=== PATIENT | male | born 1935 | race Caucasian/White ===

== ENCOUNTER 2017-02-26 16:30 | Inpatient (IN) | payer OTHER, BC ==
[2017-02-26] MEDS ORDERED: LEVAQUIN PREMIX IV 750 MG 750 MG/150 ML BAG IV SCH (17:00)
--- NOTE | 2017-02-26 17:53 | RAD ---
Chest, two views Indication: Pneumonia, cough. Comparison: None Findings: The heart size is normal. The lungs are hyperinflated with mild interstitial changes, sugg estive for COPD. No focal infiltrates, pleural effusion, or pneumothorax identified. The bony thorax is unremarkable. Impression: No acute cardiopulmonary disease. Findings suggesting COPD. Reported By:
[2017-02-26 18:15] LABS: BASOPHILS # (AUTO) 0.1 X10^3/uL (0.0-0.1); BASOPHILS % (AUTO) 0.5 % (0.2-1.0); EOSINOPHILS % (AUTO) 0.2 % (0.9-2.9); HEMATOCRIT 38.2 % (42.0-54.0); HEMOGLOBIN 12.7 g/dL (13.5-18.0); LYMPHOCYTES # (AUTO) 1.2 X10^3/uL (1.3-2.9); LYMPHOCYTES % (AUTO) 7.8 % (21.0-51.0); MEAN CORPUSCULAR HEMOGLOBIN 29.5 pg (27.0-34.0); MEAN CORPUSCULAR HGB CONC 33.1 g/dL (33.0-35.0); MEAN CORPUSCULAR VOLUME 88.9 fL (80.0-100.0); MONOCYTES # (AUTO) 1.1 x10^3/uL (0.3-0.8); MONOCYTES % (AUTO) 7.2 % (0.0-13.0); NEUTROPHILS # (AUTO) 13.2 x10^3/uL (2.2-4.8); NEUTROPHILS % (AUTO) 84.3 % (42.0-75.0); PLATELET COUNT 193 X10^3/uL (150.0-450.0); RED CELL DISTRIBUTION WIDTH 13.4 % (11.6-16.5); WHITE BLOOD COUNT 15.7 X10^3/uL (3.6-10.0)
[2017-02-26 18:21] LABS: ALANINE AMINOTRANSFERASE 21 Units/L (12-78); ALBUMIN 3.4 g/dL (3.4-5.0); ALKALINE PHOSPHATASE 84 Units/L (46-116); ASPARTATE AMINO TRANSFERASE 20 Units/L (15-37); BLOOD UREA NITROGEN 24 mg/dL (7-18); CALCIUM 8.4 mg/dL (8.5-10.1); CARBON DIOXIDE 27.8 mmol/L (21-32); CHLORIDE 101 mmol/L (98-107); COR NA(FOR HYPERGLY) 138 mmol/L (136-145); CREATININE 1.92 mg/dL (0.70-1.30); GLUCOSE 157 mg/dL (65-99); SODIUM 137 mmol/L (136-145); TOTAL PROTEIN 7.1 g/dL (6.4-8.2); eGFR BLACK RACES 43 (>60); eGFR NON BLACK RACES 36 (>60)
[2017-02-26] MEDS ORDERED: NS 1/2 1000 ML IV 1,000 ML IV ONE (18:30)
[2017-02-26 18:33] VITALS: BMI 22.4
[2017-02-26] MEDS: ROBITUSSIN DM PO SCH ×2 (18:36→22:28)
[2017-02-26] MEDS: NS 1/2 1000 ML IV 1,000 ML IV SCH (18:37)
[2017-02-26] MEDS: TYLENOL 325 MG TAB PO PRN (19:46)
[2017-02-26] MEDS: DUONEB 0.5 MG/3 MG NEB SCH (20:30)
[2017-02-26] MEDS: HUMULIN R SC PRN (22:46)
[2017-02-27] MEDS: DUONEB 0.5 MG/3 MG NEB SCH ×6 (00:23→21:22)
[2017-02-27 05:31] LABS: BASOPHILS % (AUTO) 0.4 % (0.2-1.0); EOSINOPHILS # (AUTO) 0.1 x10^3/uL (0.0-0.2); HEMATOCRIT 33.2 % (42.0-54.0); HEMOGLOBIN 11.4 g/dL (13.5-18.0); LYMPHOCYTES # (AUTO) 1.3 X10^3/uL (1.3-2.9); LYMPHOCYTES % (AUTO) 12.9 % (21.0-51.0); MEAN CORPUSCULAR HEMOGLOBIN 30.4 pg (27.0-34.0); MEAN CORPUSCULAR HGB CONC 34.2 g/dL (33.0-35.0); MEAN CORPUSCULAR VOLUME 88.9 fL (80.0-100.0); MEAN PLATELET VOLUME 9.2 fL (7.4-11.0); MONOCYTES # (AUTO) 0.8 x10^3/uL (0.3-0.8); MONOCYTES % (AUTO) 7.8 % (0.0-13.0); NEUTROPHILS % (AUTO) 77.9 % (42.0-75.0); PLATELET COUNT 157 X10^3/uL (150.0-450.0); RED BLOOD COUNT 3.73 X10^6/uL (4.7-6.0); RED CELL DISTRIBUTION WIDTH 13.5 % (11.6-16.5); WHITE BLOOD COUNT 10.3 X10^3/uL (3.6-10.0)
[2017-02-27 05:46] LABS: ALBUMIN 2.6 g/dL (3.4-5.0); CALCIUM 7.9 mg/dL (8.5-10.1); CARBON DIOXIDE 28.2 mmol/L (21-32); CREATININE 1.6 mg/dL (0.70-1.30); TOTAL PROTEIN 5.8 g/dL (6.4-8.2)
[2017-02-27] MEDS ORDERED: NS 1/2 1000 ML IV 1,000 ML IV ONE ×2 (08:50→22:37)
[2017-02-27] MEDS: NS 1/2 1000 ML IV 1,000 ML IV SCH ×2 (08:56→22:31)
[2017-02-27] MEDS: LEVAQUIN PREMIX IV 750 MG 750 MG/150 ML BAG IV SCH (08:57)
[2017-02-27] MEDS: ROBITUSSIN DM PO SCH ×4 (08:57→20:34)
--- NOTE | 2017-02-27 12:03 | DR.UPDATE ---
H&P Update History and Physical Update: HISTORY AND PHYSICAL UPDATE FOR ADMISSION 02/26/17 MR. HANKINS'S H&P WAS COMPLETED IN OUR OFFICE PRIOR TO ADMISSION. HE HAS BEEN SEEN AND EXAMINED WITH NO CHANGES NOTED.
--- NOTE | 2017-02-27 12:12 | PCM.PROG ---
Progress Note - Progress Note for Day of Date: 02/27/17 - Subjective Subjective: PATIENT CONTINUES WITH COUGH AND CHEST CONGESTION THIS MORNING. LUNGS ARE NOTED WITH SCATTERED WHEEZES AND RHONCHI ON AUSCULTATION. PATIENT IS NOTED WITH A COARSE, NON-PRODUCTIVE COUGH. HE STATES HE WAS DIAGNOSED WITH ACUTE BRONCHITIS APPROXIMATELY THREE WEEKS AGO, WAS TREATED WITH ORAL ANTIBIOTICS, AND HASN'T RECOVERED. HE REPORTS SYMPTOMS WORSENED OVER THAT PERIOD OF TIME. PATIENT IS AFEBRILE. CBC WNL EXCEPT: WBC IMPROVED FROM 15.7 TO 10.3, H/H 11.4/33.2. CMP WNL EXCEPT: BUN/CREAT 22/1.60, GFR 44, GLUCOSE 112 , CALCIUM 7.9, TOT PROTEIN 5.8, ALBUMIN 2.6. WE WILL CONTINUE WITH CURRENT TREATMENT AND FOLLOW UP WITH LABS AND CHEST XRAY IN AM. - Past Medical Family Social History Past Med/Fam/Surg Hx: No changes since H&P Allergies: Allergies Penicillins Allergy (Verified 02/26/17 18:01) - Review of Systems ROS: No change since H&P - Vital Signs and I&O's Vital Signs: Temperature 97.6 F Pulse Rate [Right Brachial] 64 Pulse Rate 88 Respiratory Rate 18 Blood Pressure [Right Arm] 119/64 O2 Sat by Pulse Oximetry 98 Intake and Output: Intake & Output 02/25/17 02/26/17 02/27/17 02/28/17 11:59 11:59 11:59 11:59 Intake Total 620 Output Total 775 Balance -155 - Physical Exam Oriented: Normal, Time, Person, Place Eyes: Normal. negative: Blurred Vision, Diplopia, Discharge, Pain, Redness, Photophobia Ear: Normal. negative: Swelling, Ecchymosis, Hemotypanum, Abrasion, Laceration Nose: Normal. negative: Injected, Discharge, Blood Throat: Red, Dry. negative: Tonsillar Hypertrophy, Exudate Respiratory: Generalized, Wheezes, Rhonchi Cardiovascular: Normal. negative: Murmur, Edema : Normal. negative: Dysuria, Hematuria, Frequency, Discharge, Testicular Pain Auscultation: Bowel Sounds: Normal. negative: Bruit Palpation: Normal. negative: Spleen Enlarged, Liver Enlarged, Mass Pulsatile Tenderness: Normal. negative: Rebound, Guarding, Rigidity Skin: Decreased Turgur. negative: Diaphoresis, Wound, Bruising, Ecchymosis Musculoskeletal: Instability Psychiatric: Normal Mood Description: Calm, Appropriate Affect: Normal Speech Pattern: Clear, Appropriate - Laboratory and Diagnostics Result Diagrams: 02/27/17 04:25 02/27/17 04:25 Labs: 02/26/17 18:15 Sputum - Expectorated Sputum Sputum Culture - Preliminary 02/26/17 18:15 Sputum - Expectorated Sputum - Final Laboratory WBC 10.3 X10^3/uL (3.6-10.0) H 02/27/17 04:25 RBC 3.73 X10^6/uL (4.7-6.0) L 02/27/17 04:25 Hgb 11.4 g/dL (13.5-18.0) L 02/27/17 04:25 Hct 33.2 % (42.0-54.0) L 02/27/17 04:25 MCV 88.9 fL (80.0-100.0) 02/27/17 04:25 MCH 30.4 pg (27.0-34.0) 02/27/17 04:25 MCHC 34.2 g/dL (33.0-35.0) 02/27/17 04:25 RDW 13.5 % (11.6-16.5) 02/27/17 04:25 Plt Count 157 X10^3/uL (150.0-450.0) 02/27/17 04:25 MPV 9.2 fL (7.4-11.0) 02/27/17 04:25 Neut % 77.9 % (42.0-75.0) H 02/27/17 04:25 Lymph % 12.9 % (21.0-51.0) L 02/27/17 04:25 [place] % 7.8 % (0.0-13.0) 02/27/17 04:25 Eos % 1.0 % (0.9-2.9) 02/27/17 04:25 Baso % 0.4 % (0.2-1.0) 02/27/17 04:25 Neut # 8.0 x10^3/uL (2.2-4.8) H 02/27/17 04:25 Lymph # 1.3 X10^3/uL (1.3-2.9) 02/27/17 04:25 Gibson # 0.8 x10^3/uL (0.3-0.8) 02/27/17 04:25 Eos # 0.1 x10^3/uL (0.0-0.2) 02/27/17 04:25 Baso # 0.0 X10^3/uL (0.0-0.1) 02/27/17 04:25 Absolute Nucleated RBC 0.0 /100WBC 02/27/17 04:25 Sodium 142 mmol/L (136-145) 02/27/17 04:25 Corrected Sodium 142 mmol/L (136-145) 02/27/17 04:25 Potassium 3.7 mmol/L (3.5-5.1) 02/27/17 04:25 Chloride 107 mmol/L (98-107) 02/27/17 04:25 Carbon Dioxide 28.2 mmol/L (21-32) 02/27/17 04:25 BUN 22 mg/dL (7-18) H 02/27/17 04:25 Creatinine 1.60 mg/dL (0.70-1.30) H 02/27/17 04:25 Est GFR (MDRD) Af Amer 53 (>60) L 02/27/17 04:25 Est GFR (MDRD) Non-Af 44 (>60) L 02/27/17 04:25 Glucose 112 mg/dL (65-99) H 02/27/17 04:25 Calcium 7.9 mg/dL (8.5-10.1) L 02/27/17 04:25 Corrected Calcium 9.0 mg/dL (8.5-10.1) 02/27/17 04:25 Total Bilirubin 0.40 mg/dL (0.2-1.0) 02/27/17 04:25 AST 16 Units/L (15-37) 02/27/17 04:25 ALT 19 Units/L (12-78) 02/27/17 04:25 Alkaline Phosphatase 60 Units/L (46-116) 02/27/17 04:25 Total Protein 5.8 g/dL (6.4-8.2) L 02/27/17 04:25 Albumin 2.6 g/dL (3.4-5.0) L 02/27/17 04:25 Globulin 3.2 g/dL (2.5-4.5) 02/27/17 04:25 Albumin/Globulin Ratio 0.8 Ratio (1.1-2.1) L 02/27/17 04:25 - Plan (1) Bronchopneumonia Status: Acute Plan: CONTINUE PNEUMONIA PROTOCOL: IV LEVAQUIN, DUONEBS, ROBITUSSIN, SUPPLEMENTAL OXYGEN, MONITOR LABS AND CHEST XRAY. (2) Asthma Status: Chronic Qualifiers: Asthma severity: mild persistent Asthma complication type: uncomplicated Qualified Code(s): J45.30 - Mild persistent asthma, uncomplicated (3) COPD (chronic obstructive pulmonary disease) Status: Chronic Qualifiers: COPD type: chronic bronchitis Chronic bronchitis type: simple Emphysema type: E Qualified Code(s): J41.0 - Simple chronic bronchitis (4) HTN (hypertension) Status: Chronic Qualifiers: Hypertension type: essential hypertension Qualified Code(s): I10 - Essential (primary) hypertension (5) History of prostate cancer Status: Chronic (6) Arthritis Status: Chronic
[2017-02-27] MEDS: HUMULIN R SC PRN ×2 (13:56→20:44)
[2017-02-27] MEDS ORDERED: MOBIC TAB 15 MG PO PRN (19:36)
[2017-02-27] MEDS ORDERED: [UNRECOGNIZED DRUG - OTHER] PO SCH (19:45)
[2017-02-27] MEDS ORDERED: SINGULAIR TAB 10 MG PO SCH ×3 (20:00→22:30)
[2017-02-27] MEDS: SNACK - Diabetic Appropriate PO SCH (20:34)
[2017-02-27] MEDS: NEURONTIN CAP 300 MG PO SCH (22:28)
[2017-02-28] MEDS: DUONEB 0.5 MG/3 MG NEB SCH ×6 (01:20→21:07)
[2017-02-28] MEDS: HUMULIN R SC PRN ×2 (06:15→17:31)
[2017-02-28 06:17] LABS: BASOPHILS % (AUTO) 0.5 % (0.2-1.0); EOSINOPHILS # (AUTO) 0.2 x10^3/uL (0.0-0.2); EOSINOPHILS % (AUTO) 2.3 % (0.9-2.9); HEMATOCRIT 32.5 % (42.0-54.0); LYMPHOCYTES # (AUTO) 0.9 X10^3/uL (1.3-2.9); LYMPHOCYTES % (AUTO) 13.3 % (21.0-51.0); MEAN CORPUSCULAR HEMOGLOBIN 30.2 pg (27.0-34.0); MEAN CORPUSCULAR HGB CONC 33.7 g/dL (33.0-35.0); MEAN CORPUSCULAR VOLUME 89.6 fL (80.0-100.0); MEAN PLATELET VOLUME 9.3 fL (7.4-11.0); MONOCYTES # (AUTO) 0.6 x10^3/uL (0.3-0.8); MONOCYTES % (AUTO) 9.1 % (0.0-13.0); NEUTROPHILS % (AUTO) 74.8 % (42.0-75.0); PLATELET COUNT 173 X10^3/uL (150.0-450.0); RED BLOOD COUNT 3.63 X10^6/uL (4.7-6.0); RED CELL DISTRIBUTION WIDTH 13.5 % (11.6-16.5); WHITE BLOOD COUNT 6.6 X10^3/uL (3.6-10.0)
[2017-02-28 06:36] LABS: ALBUMIN 2.6 g/dL (3.4-5.0); CALCIUM 8.1 mg/dL (8.5-10.1); CARBON DIOXIDE 24.6 mmol/L (21-32); COR CA(FOR HYPOALB) 9.2 mg/dL (8.5-10.1); CREATININE 1.68 mg/dL (0.70-1.30); TOTAL PROTEIN 5.8 g/dL (6.4-8.2)
[2017-02-28] MEDS: ROBITUSSIN DM PO SCH ×4 (08:44→21:02)
[2017-02-28] MEDS: PATIENT'S HOME MEDICATION PO SCH (08:45)
[2017-02-28] MEDS ORDERED: NS 1/2 1000 ML IV 1,000 ML IV ONE ×2 (10:26→22:16)
[2017-02-28] MEDS: NS 1/2 1000 ML IV 1,000 ML IV SCH ×2 (10:27→21:10)
[2017-02-28] MEDS: COLACE CAP 100 MG PO SCH ×2 (11:30→21:02)
[2017-02-28] MEDS: XANAX PO PRN ×2 (11:32→21:02)
[2017-02-28] MEDS: MIRALAX POWDER (1 DOSE 17GM) PO SCH (11:37)
[2017-02-28] MEDS: MILK OF MAGNESIA PO SCH ×4 (11:37→21:02)
--- NOTE | 2017-02-28 18:45 | PCM.PROG ---
Progress Note - Progress Note for Day of Date: 02/28/17 - Subjective Subjective: PATIENT CONTINUES WITH COUGH AND CHEST CONGESTION. LUNGS CONTINUE WITH SCATTERED WHEEZES AND RHONCHI ON AUSCULTATION. PATIENT CONTINUES WITH A COARSE, NON-PRODUCTIVE COUGH. PATIENT REPORTS HALLUCINATIONS LAST NIGHT, WHICH IS NEW TO PATIENT. PATIENT IS ANXIOUS DUE TO NEB TREATMENTS. PATIENT REPORTS CONSTIPATION. PATIENT IS AFEBRILE, VITAL SIGNS STABLE. CBC WNL EXCEPT: WBC IMPROVED 10.3 TO 6.6, H/H 11.0/32.5. CMP WNL EXCEPT: CHL 108, BUN/CREAT 22/1.68 , GFR 42, GLUCOSE 115, CALCIUM 8.1, TOT PROTEIN 5.8, ALBUMIN 2.6. WE WILL START XANAX, MILK OF MAGNESIA, MIRALAX, AND COLACE. WE WILL CONTINUE TO MONITOR , CONTINUE CURRENT TREATMENT, AND FOLLOW UP WITH LABS AND CHEST XRAY IN AM. - Past Medical Family Social History Past Med/Fam/Surg Hx: No changes since H&P Allergies: Allergies Penicillins Allergy (Verified 02/26/17 18:01) - Review of Systems ROS: No change since H&P - Vital Signs and I&O's Vital Signs: Temperature 97.4 F Pulse Rate [Right Brachial] 76 Pulse Rate 78 Respiratory Rate 20 Blood Pressure [Right Arm] 168/80 O2 Sat by Pulse Oximetry 94 Intake and Output: Intake & Output 02/26/17 02/27/17 02/28/17 03/01/17 11:59 11:59 11:59 11:59 Intake Total 620 3973 2750 Output Total 775 650 Balance -155 3323 2750 - Physical Exam Oriented: Normal, Time, Person, Place Eyes: Normal. negative: Blurred Vision, Diplopia, Discharge, Pain, Redness, Photophobia Ear: Normal. negative: Swelling, Ecchymosis, Hemotypanum, Abrasion, Laceration Nose: Normal. negative: Injected, Discharge, Blood Throat: Red, Dry. negative: Tonsillar Hypertrophy, Exudate Respiratory: Generalized, Wheezes, Rhonchi Cardiovascular: Normal. negative: Murmur, Edema : Normal. negative: Dysuria, Hematuria, Frequency, Discharge, Testicular Pain Auscultation: Bowel Sounds: Decreased. negative: Bruit Palpation: Normal. negative: Spleen Enlarged, Liver Enlarged, Mass Pulsatile Tenderness: Normal. negative: Rebound, Guarding, Rigidity Skin: Decreased Turgur. negative: Diaphoresis, Wound, Bruising, Ecchymosis Musculoskeletal: Instability Psychiatric: Normal Mood Description: Calm, Appropriate Affect: Normal Speech Pattern: Clear, Appropriate - Laboratory and Diagnostics Result Diagrams: 02/28/17 03:40 02/28/17 03:40 Labs: 02/26/17 18:00 Blood Blood Culture - Preliminary 02/26/17 17:58 Blood Blood Culture - Preliminary 02/26/17 18:15 Sputum - Expectorated Sputum Sputum Culture - Final 02/26/17 18:15 Sputum - Expectorated Sputum - Final Laboratory WBC 6.6 X10^3/uL (3.6-10.0) 02/28/17 03:40 RBC 3.63 X10^6/uL (4.7-6.0) L 02/28/17 03:40 Hgb 11.0 g/dL (13.5-18.0) L 02/28/17 03:40 Hct 32.5 % (42.0-54.0) L 02/28/17 03:40 MCV 89.6 fL (80.0-100.0) 02/28/17 03:40 MCH 30.2 pg (27.0-34.0) 02/28/17 03:40 MCHC 33.7 g/dL (33.0-35.0) 02/28/17 03:40 RDW 13.5 % (11.6-16.5) 02/28/17 03:40 Plt Count 173 X10^3/uL (150.0-450.0) 02/28/17 03:40 MPV 9.3 fL (7.4-11.0) 02/28/17 03:40 Neut % 74.8 % (42.0-75.0) 02/28/17 03:40 Lymph % 13.3 % (21.0-51.0) L 02/28/17 03:40 [place] % 9.1 % (0.0-13.0) 02/28/17 03:40 Eos % 2.3 % (0.9-2.9) 02/28/17 03:40 Baso % 0.5 % (0.2-1.0) 02/28/17 03:40 Neut # 5.0 x10^3/uL (2.2-4.8) H 02/28/17 03:40 Lymph # 0.9 X10^3/uL (1.3-2.9) L 02/28/17 03:40 [place] # 0.6 x10^3/uL (0.3-0.8) 02/28/17 03:40 Eos # 0.2 x10^3/uL (0.0-0.2) 02/28/17 03:40 Baso # 0.0 X10^3/uL (0.0-0.1) 02/28/17 03:40 Absolute Nucleated RBC 0.0 /100WBC 02/28/17 03:40 Sodium 144 mmol/L (136-145) 02/28/17 03:40 Corrected Sodium 144 mmol/L (136-145) 02/28/17 03:40 Potassium 3.7 mmol/L (3.5-5.1) 02/28/17 03:40 Chloride 108 mmol/L (98-107) H 02/28/17 03:40 Carbon Dioxide 24.6 mmol/L (21-32) 02/28/17 03:40 BUN 22 mg/dL (7-18) H 02/28/17 03:40 Creatinine 1.68 mg/dL (0.70-1.30) H 02/28/17 03:40 Est GFR (MDRD) Af Amer 51 (>60) L 02/28/17 03:40 Est GFR (MDRD) Non-Af 42 (>60) L 02/28/17 03:40 Glucose 115 mg/dL (65-99) H 02/28/17 03:40 Calcium 8.1 mg/dL (8.5-10.1) L 02/28/17 03:40 Corrected Calcium 9.2 mg/dL (8.5-10.1) 02/28/17 03:40 Total Bilirubin 0.30 mg/dL (0.2-1.0) 02/28/17 03:40 AST 19 Units/L (15-37) 02/28/17 03:40 ALT 19 Units/L (12-78) 02/28/17 03:40 Alkaline Phosphatase 59 Units/L (46-116) 02/28/17 03:40 Total Protein 5.8 g/dL (6.4-8.2) L 02/28/17 03:40 Albumin 2.6 g/dL (3.4-5.0) L 02/28/17 03:40 Globulin 3.2 g/dL (2.5-4.5) 02/28/17 03:40 Albumin/Globulin Ratio 0.8 Ratio (1.1-2.1) L 02/28/17 03:40 - Plan (1) Bronchopneumonia Status: Acute Plan: CONTINUE PNEUMONIA PROTOCOL: IV LEVAQUIN, DUONEBS, ROBITUSSIN, SUPPLEMENTAL OXYGEN, MONITOR LABS AND CHEST XRAY. (2) Anxiety Status: Acute Plan: START XANAX 0.25 BID PRN, MONITOR. (3) Constipation by delayed colonic transit Status: Acute Plan: START MILK OF MAGNESIA, MIRALAX, COLACE, MONITOR. (4) Hallucination Status: Acute Plan: CONTINUE TO MONITOR. (5) Asthma Status: Chronic Qualifiers: Asthma severity: mild persistent Asthma complication type: uncomplicated Qualified Code(s): J45.30 - Mild persistent asthma, uncomplicated (6) COPD (chronic obstructive pulmonary disease) Status: Chronic Qualifiers: COPD type: chronic bronchitis Chronic bronchitis type: simple Emphysema type: E Qualified Code(s): J41.0 - Simple chronic bronchitis (7) HTN (hypertension) Status: Chronic Qualifiers: Hypertension type: essential hypertension Qualified Code(s): I10 - Essential (primary) hypertension (8) History of prostate cancer Status: Chronic (9) Arthritis Status: Chronic
[2017-02-28] MEDS: NEURONTIN CAP 300 MG PO SCH (21:02)
[2017-02-28] MEDS: TYLENOL 325 MG TAB PO PRN (21:02)
[2017-02-28] MEDS: SNACK - Diabetic Appropriate PO SCH (21:03)
[2017-03-01] MEDS: DUONEB 0.5 MG/3 MG NEB SCH ×6 (00:53→21:25)
[2017-03-01] MEDS: NS 1/2 1000 ML IV 1,000 ML IV SCH ×2 (04:15→15:13)
[2017-03-01 06:02] LABS: BASOPHILS % (AUTO) 0.9 % (0.2-1.0); EOSINOPHILS # (AUTO) 0.2 x10^3/uL (0.0-0.2); HEMATOCRIT 33.1 % (42.0-54.0); HEMOGLOBIN 11.1 g/dL (13.5-18.0); LYMPHOCYTES # (AUTO) 1.2 X10^3/uL (1.3-2.9); LYMPHOCYTES % (AUTO) 25.7 % (21.0-51.0); MEAN CORPUSCULAR HEMOGLOBIN 30.1 pg (27.0-34.0); MEAN CORPUSCULAR HGB CONC 33.5 g/dL (33.0-35.0); MEAN CORPUSCULAR VOLUME 89.8 fL (80.0-100.0); MONOCYTES # (AUTO) 0.4 x10^3/uL (0.3-0.8); NEUTROPHILS % (AUTO) 61.4 % (42.0-75.0); PLATELET COUNT 179 X10^3/uL (150.0-450.0); RED BLOOD COUNT 3.68 X10^6/uL (4.7-6.0); RED CELL DISTRIBUTION WIDTH 13.5 % (11.6-16.5); WHITE BLOOD COUNT 4.9 X10^3/uL (3.6-10.0)
[2017-03-01 06:03] LABS: ALBUMIN 2.6 g/dL (3.4-5.0); CALCIUM 8.2 mg/dL (8.5-10.1); CARBON DIOXIDE 28.6 mmol/L (21-32); COR CA(FOR HYPOALB) 9.3 mg/dL (8.5-10.1); CREATININE 1.44 mg/dL (0.70-1.30); TOTAL PROTEIN 5.9 g/dL (6.4-8.2)
--- NOTE | 2017-03-01 07:51 | RAD ---
HISTORY: Chest pain Study: Single-view chest Comparison: February 26, 2017 Findings: The trachea is midline. The cardiac silhouette is unremarkable. There are chronic interstitial radha nges as well as hyperinflation and flattening of the diaphragms, findings suggesting COPD. There has been interval development of the patchy ground-glass infiltrate within the right lower lobe, most c onsistent with pneumonia. The left lung is relatively clear. The bony thorax is grossly intact. IMPRESSION: 1. Interval development of right lower lobe infiltrate/pneumonia superimposed upon COPD. Followup u ntil resolution is recommended. Reported By:
[2017-03-01] MEDS: COLACE CAP 100 MG PO SCH ×2 (12:11→20:56)
[2017-03-01] MEDS: ROBITUSSIN DM PO SCH ×3 (12:12→20:55)
[2017-03-01] MEDS: MILK OF MAGNESIA PO SCH ×3 (12:12→20:55)
[2017-03-01] MEDS: SINGULAIR TAB 10 MG PO SCH (12:12)
[2017-03-01] MEDS: PATIENT'S HOME MEDICATION PO SCH (12:13)
[2017-03-01] MEDS: LEVAQUIN PREMIX IV 750 MG 750 MG/150 ML BAG IV SCH (12:14)
[2017-03-01] MEDS: MIRALAX POWDER (1 DOSE 17GM) PO SCH (12:14)
[2017-03-01] MEDS ORDERED: NS 1/2 1000 ML IV 1,000 ML IV ONE (15:06)
[2017-03-01] MEDS: SOLU-MEDROL 40 MG VIAL IVP SCH ×2 (15:15→22:30)
[2017-03-01] MEDS: NEURONTIN CAP 300 MG PO SCH (20:56)
[2017-03-01] MEDS: SNACK - Diabetic Appropriate PO SCH (20:56)
[2017-03-01] MEDS: HUMULIN R SC PRN (22:29)
[2017-03-01] MEDS: XANAX PO PRN (22:30)
[2017-03-02] MEDS: DUONEB 0.5 MG/3 MG NEB SCH ×3 (00:52→08:35)
[2017-03-02] MEDS ORDERED: NS 1/2 1000 ML IV 1,000 ML IV ONE (04:46)
[2017-03-02] MEDS: NS 1/2 1000 ML IV 1,000 ML IV SCH ×2 (05:56→05:57)
[2017-03-02] MEDS: HUMULIN R SC PRN ×2 (05:58→13:37)
[2017-03-02] MEDS: SOLU-MEDROL 40 MG VIAL IVP SCH (06:03)
[2017-03-02 06:15] LABS: ALBUMIN 2.8 g/dL (3.4-5.0); BASOPHILS % (AUTO) 0.4 % (0.2-1.0); CALCIUM 8.6 mg/dL (8.5-10.1); CARBON DIOXIDE 28.2 mmol/L (21-32); COR CA(FOR HYPOALB) 9.6 mg/dL (8.5-10.1); CREATININE 1.44 mg/dL (0.70-1.30); EOSINOPHILS % (AUTO) 0.1 % (0.9-2.9); HEMOGLOBIN 11.3 g/dL (13.5-18.0); LYMPHOCYTES # (AUTO) 0.5 X10^3/uL (1.3-2.9); LYMPHOCYTES % (AUTO) 10.6 % (21.0-51.0); MEAN CORPUSCULAR HEMOGLOBIN 29.7 pg (27.0-34.0); MEAN CORPUSCULAR HGB CONC 33.2 g/dL (33.0-35.0); MEAN CORPUSCULAR VOLUME 89.6 fL (80.0-100.0); MEAN PLATELET VOLUME 9.3 fL (7.4-11.0); MONOCYTES # (AUTO) 0.1 x10^3/uL (0.3-0.8); MONOCYTES % (AUTO) 1.5 % (0.0-13.0); NEUTROPHILS % (AUTO) 87.4 % (42.0-75.0); PLATELET COUNT 186 X10^3/uL (150.0-450.0); RED BLOOD COUNT 3.79 X10^6/uL (4.7-6.0); RED CELL DISTRIBUTION WIDTH 13.7 % (11.6-16.5); TOTAL PROTEIN 6.1 g/dL (6.4-8.2); WHITE BLOOD COUNT 4.6 X10^3/uL (3.6-10.0)
[2017-03-02] MEDS: ROBITUSSIN DM PO SCH ×2 (09:31→13:27)
[2017-03-02] MEDS: MILK OF MAGNESIA PO SCH ×2 (09:31→13:27)
[2017-03-02] MEDS: SINGULAIR TAB 10 MG PO SCH (09:31)
[2017-03-02] MEDS: COLACE CAP 100 MG PO SCH (09:31)
[2017-03-02] MEDS: MIRALAX POWDER (1 DOSE 17GM) PO SCH (09:31)
[2017-03-02] MEDS: PATIENT'S HOME MEDICATION PO SCH (09:32)
--- NOTE | 2017-03-02 11:10 | RAD ---
HISTORY: Pneumonia, chest pain, shortness of breath Study: AP chest obtained 6:01 a.m. Comparison: March 01, 2017 Findings: The trachea is midline . There is no widening or shift of mediastinum. The cardiac silhouette appear s within normal limits. The costophrenic angles are sharp and both diaphragms are flattened consiste nt with air trapping.. The lungs are adequately aerated. Osseous structures are within normal limits for the patient's age There is no evidence of active inflammatory disease. IMPRESSION: 1. Heart normal size lungs clear. Air trapping consistent with COPD. Reported By:
[2017-03-02 13:54] VITALS: BP 148/67
== END 2017-03-02 13:45 | disposition home or self-care (01) | DRG 194 ==
LOC: MED/SURG 16:30
PROVIDERS: ADMIT Internal Medicine; ATTEND Internal Medicine
DX: J18.0 Bronchopneumonia, unspecified organism (principal); J20.8 Acute bronchitis due to other specified organisms; J45.30 Mild persistent asthma, uncomplicated; J44.1 Chronic obstructive pulmonary disease with (acute) exacerbation; R44.2 Other hallucinations; K59.09 Other constipation; M13.89 Other specified arthritis, multiple sites; E11.65 Type 2 diabetes mellitus with hyperglycemia; I10 Essential (primary) hypertension
CPT/HCPCS: 36415; 71010; 71020; 80053; 85025; 87040; 87070; 87205; 94640; 94760; A4222; J1815; J1956; J2920; J7620

== ENCOUNTER 2023-02-26 10:34 | Observation (INO) ==
[2023-02-26] MEDS ORDERED: NovoLIN R (or HumuLIN R) SUBCUT PRN (13:48)
[2023-02-26 14:33] LABS: BASOPHILS % (AUTO) 0.7 % (0.2-1.0); EOSINOPHILS # (AUTO) 0.3 x10^3/uL (0.0-0.2); EOSINOPHILS % (AUTO) 4.8 % (0.9-2.9); HEMATOCRIT 37.7 % (42.0-54.0); HEMOGLOBIN 12.7 g/dL (13.5-18.0); LYMPHOCYTES # (AUTO) 1.9 X10^3/uL (1.3-2.9); LYMPHOCYTES % (AUTO) 33.8 % (21.0-51.0); MEAN CORPUSCULAR HEMOGLOBIN 29.9 pg (27.0-34.0); MEAN CORPUSCULAR HGB CONC 33.8 g/dL (33.0-35.0); MEAN CORPUSCULAR VOLUME 88.5 fL (80.0-100.0); MEAN PLATELET VOLUME 8.5 fL (7.4-11.0); MONOCYTES # (AUTO) 0.6 x10^3/uL (0.3-0.8); MONOCYTES % (AUTO) 10.5 % (0.0-13.0); NEUTROPHILS # (AUTO) 2.8 x10^3/uL (2.2-4.8); NEUTROPHILS % (AUTO) 50.2 % (42.0-75.0); RED BLOOD COUNT 4.26 X10^6/uL (4.7-6.0); RED CELL DISTRIBUTION WIDTH 13.6 % (11.6-16.5); WHITE BLOOD COUNT 5.7 X10^3/uL (3.6-10.0)
[2023-02-26] MEDS: NS 1,000 ML IV 1,000 ML IV SCH (14:40)
[2023-02-26 14:46] VITALS: BMI 20.8
[2023-02-26 14:46] LABS: ALANINE AMINOTRANSFERASE 21 Units/L (12-78); ALBUMIN 3.6 g/dL (3.4-5.0); ALKALINE PHOSPHATASE 72 Units/L (46-116); AMYLASE 125 Units/L (25-115); ASPARTATE AMINO TRANSFERASE 21 Units/L (15-37); BLOOD UREA NITROGEN 23 mg/dL (7-18); CALCIUM 8.3 mg/dL (8.5-10.1); CARBON DIOXIDE 31.7 mmol/L (21-32); CHLORIDE 104 mmol/L (98-107); COR NA(FOR HYPERGLY) 142 mmol/L (136-145); LIPASE 44 Units/L (73-393); SODIUM 141 mmol/L (136-145); TOTAL PROTEIN 6.1 g/dL (6.4-8.2); eGFR NON BLACK RACES 47 (>60)
[2023-02-26] MEDS: RESTORIL CAP 15 MG PO SCH (20:33)
[2023-02-27] MEDS: NS 1,000 ML IV 1,000 ML IV SCH ×3 (03:06→16:05)
[2023-02-27 05:48] LABS: BILIRUBIN,URINE NEGATIVE (NEGATIVE); BLOOD/HEMOGLOBIN,URINE NEGATIVE (NEGATIVE); GLUCOSE, URINE NEGATIVE (NEGATIVE); KETONES,URINE NEGATIVE (NEGATIVE); LEUKOCYTE ESTERASE ,URINE NEGATIVE (NEGATIVE); NITRITES,URINE NEGATIVE (NEGATIVE); PROTEIN,URINE NEGATIVE (NEGATIVE); UROBILINOGEN,URINE NORMAL (NORMAL)
[2023-02-27 05:50] LABS: APPEARANCE,URINE CLEAR (CLEAR); COLOR,URINE PALE YELLOW (YELLOW)
[2023-02-27 06:24] LABS: BASOPHILS % (AUTO) 0.7 % (0.2-1.0); EOSINOPHILS # (AUTO) 0.4 x10^3/uL (0.0-0.2); EOSINOPHILS % (AUTO) 5.6 % (0.9-2.9); HEMATOCRIT 36.9 % (42.0-54.0); HEMOGLOBIN 12.5 g/dL (13.5-18.0); LYMPHOCYTES # (AUTO) 2.1 X10^3/uL (1.3-2.9); MEAN CORPUSCULAR HEMOGLOBIN 29.8 pg (27.0-34.0); MEAN CORPUSCULAR HGB CONC 33.9 g/dL (33.0-35.0); MEAN CORPUSCULAR VOLUME 87.9 fL (80.0-100.0); MEAN PLATELET VOLUME 8.8 fL (7.4-11.0); MONOCYTES # (AUTO) 0.6 x10^3/uL (0.3-0.8); MONOCYTES % (AUTO) 9.4 % (0.0-13.0); NEUTROPHILS # (AUTO) 3.3 x10^3/uL (2.2-4.8); NEUTROPHILS % (AUTO) 51.3 % (42.0-75.0); RED CELL DISTRIBUTION WIDTH 13.8 % (11.6-16.5); WHITE BLOOD COUNT 6.4 X10^3/uL (3.6-10.0)
[2023-02-27 06:44] LABS: ALBUMIN 3.2 g/dL (3.4-5.0); CALCIUM 8.1 mg/dL (8.5-10.1); CARBON DIOXIDE 30.9 mmol/L (21-32); COR CA(FOR HYPOALB) 8.7 mg/dL (8.5-10.1); CREATININE 1.43 mg/dL (0.70-1.30); TOTAL PROTEIN 5.6 g/dL (6.4-8.2)
--- NOTE | 2023-02-27 08:52 | CT ---
HISTORYabdominal painSTUDYABDOMEN/PELVIS WITH [id number] images through the abdomen and pelvis were performed after the administration of intravenous contrast. CT scan was performed following ALARA (As low as Reasonably Achievable).Coronal and Sagittal reformatted images were performed.FINDINGSThe lung bases demonstrate mild atelectasis in the right middle lobe. There is unchanged mild tree-in-bud in the left lower lobe.The liver, spleen and pancreas demonstrate no focal lesions, no gallstones.No intra extrahepatic biliary dilatation. No adrenal masses. There are bilateral normal enhancing kidneys without hydronephrosis. No retroperitoneal masses.No abnormal dilated small bowel loops.The stomach is mildly distended. No colitis, there is increase stool in the right colon. No secondary signs of appendicitis, no free airPelvis: No free fluid, the prostate is enlarged measuring approximately 4.4 x 5.4 centimeters with prostatic seeds. The urinary bladder is unremarkableNo pelvic adenopathy. There is sigmoid colonic diverticulosis without diverticulitisBone windows no evidence of aggressive bone lesions. No acute fractures. There is degenerative disc disease at L4-L5 and L5-S1.IMPRESSIONMild distension of the stomach with some thickening of the mucosa in the antrum, it could represent peristalsis, the contrast reached the small bowel loops.Constipation with large amount of stool in the right colon. No colitis.Electronically signed by: Angela Alvarez (Feb 27, 2023 08:51:10)
[2023-02-27] MEDS: SINGULAIR TAB 10 MG PO SCH (09:01)
[2023-02-27] MEDS: CLARITIN PO SCH (09:01)
[2023-02-27] MEDS: SYNTHROID 50 mcg TAB PO SCH (09:01)
[2023-02-27] MEDS: FLOMAX PO SCH (09:01)
[2023-02-27] MEDS: TELMISARTAN 20 MG PO SCH (09:11)
--- NOTE | 2023-02-27 11:26 | DR.UPDATE ---
H&P Update Prescription drug monitoring program results: PDMP reviewed and no concerns identified H&P Reviewed: Yes Any changes to H&P?: Yes Changes noted:: PRESENTED TO THE OFFICE ON 02/26/23 WITH COMPLAINTS OF DIFFUSE ABDOMINAL PAIN, BLOATING, NAUSEA, DECREASED APPETITE, GENERALIZED WEAKNESS, AND FATIGUE. HE REPORTS THAT SYMPTOMS STARTED A FEW WEEKS AGO. HE DESCRIBES PAIN DIFFUSE, DULL AND ACHING, AND INTERMITTENT. HE RATES PAIN A 5/10 UPON PRESENTATION. HE WAS STARTED ON MOUNJARO LAST WEEK DUE TO HX OF DM II WITH ELEVATED A1C. PMH INCLUDES: HTN, GERD, BPH, PROSTATE CANCER, DM II, HYPOTHYROIDISM. DECISION WAS MADE TO ADMIT PATIENT TO THE HOSPITAL FOR FURTHER EVALUATION AND TREATMENT. ON ARRIVAL TO THE HOSPITAL, HIS VITALS WERE: 97.9-69-20-97%-152/76. LABS WERE OBTAINED. WBC 5.7, RBC 4.26, HGB 12.7, HCT 37.7, PLT COUNT 186, SODIUM 141, POTASSIUM 3.8, CHLORIDE 104, BUN 23, CREATININE 1.50, GLUCOSE 159, CALCIUM 8.3, AST 21, ALT 21, ALK PHOS 72, TOTAL PROTEIN 6.1, ALBUMIN 3.6, AMYLASE 125, LIPASE 44. URINALYSIS WAS OBTAINED AND WAS UNREMARKABLE, BUT A CULTURE WAS SET UP. AN ABDOMEN/PELVIS CT WITH CONTRAST WAS OBTAINED AND REVEALED: Mild distension of the stomach with some thickening of the mucosa in the antrum, it could represent peristalsis, the contrast reached the small bowel loops. Constipation with large amount of stool in the right colon. No colitis. HE WAS STARTED ON NORMAL SALINE AT 80 ML/HR, REGLAN 5MG IV Q6H, OTBS ACHS, HUMULIN R SLIDING SCALE, PROTONIX 40MG IV BID, PEPCID 40MG PO BID, COLACE 100MG BID, MILK OF MAGNESIA 15ML QID, MIRALAX 17G PO DAILY. HIS HOME MEDICATIONS OF SYNTHROID, CLARITIN, SINGULAIR, FLOMAX, RESTORIL, AND TELMISARTAN WERE ALSO RESUMED. OTHERWISE, WE PLAN TO FOLLOW-UP WITH AM LABS AND CONTINUE TO MONITOR. TIME SPENT ON CLINICAL ASSESSMENT, REVIWING LABS AND IMAGING, DECISION MAKING, AND DOCUMENTATION GREATER THAN 75 MINUTES. Patient was examined?: Yes
[2023-02-27] MEDS: COLACE CAP 100 MG PO SCH ×2 (11:30→21:17)
[2023-02-27] MEDS: PEPCID TAB 40 MG PO SCH ×2 (11:30→21:17)
[2023-02-27] MEDS: PROTONIX INJ 40 MG VIAL IVP SCH ×2 (11:30→21:18)
[2023-02-27] MEDS: MILK OF MAGNESIA PO SCH ×4 (11:30→21:18)
[2023-02-27] MEDS: MIRALAX POWDER (1 DOSE 17 G) PO SCH (11:31)
[2023-02-27] MEDS: REGLAN INJ 10 MG VIAL IVP SCH ×3 (11:32→22:27)
[2023-02-27] MEDS: RESTORIL CAP 15 MG PO SCH (21:18)
[2023-02-28] MEDS: NS 1,000 ML IV 1,000 ML IV SCH (04:30)
[2023-02-28 04:43] VITALS: BP 121/57
[2023-02-28] MEDS: REGLAN INJ 10 MG VIAL IVP SCH (05:15)
[2023-02-28 05:26] LABS: BASOPHILS # (AUTO) 0.1 X10^3/uL (0.0-0.1); BASOPHILS % (AUTO) 0.8 % (0.2-1.0); EOSINOPHILS # (AUTO) 0.3 x10^3/uL (0.0-0.2); EOSINOPHILS % (AUTO) 4.6 % (0.9-2.9); HEMATOCRIT 32.9 % (42.0-54.0); HEMOGLOBIN 11.4 g/dL (13.5-18.0); LYMPHOCYTES # (AUTO) 1.6 X10^3/uL (1.3-2.9); LYMPHOCYTES % (AUTO) 24.6 % (21.0-51.0); MEAN CORPUSCULAR HEMOGLOBIN 30.3 pg (27.0-34.0); MEAN CORPUSCULAR HGB CONC 34.7 g/dL (33.0-35.0); MEAN CORPUSCULAR VOLUME 87.4 fL (80.0-100.0); MEAN PLATELET VOLUME 8.8 fL (7.4-11.0); MONOCYTES # (AUTO) 0.6 x10^3/uL (0.3-0.8); MONOCYTES % (AUTO) 9.2 % (0.0-13.0); NEUTROPHILS % (AUTO) 60.8 % (42.0-75.0); RED BLOOD COUNT 3.77 X10^6/uL (4.7-6.0); RED CELL DISTRIBUTION WIDTH 13.7 % (11.6-16.5); WHITE BLOOD COUNT 6.6 X10^3/uL (3.6-10.0)
[2023-02-28 05:36] LABS: ALANINE AMINOTRANSFERASE 17 Units/L (12-78); ALBUMIN 2.8 g/dL (3.4-5.0); ALKALINE PHOSPHATASE 57 Units/L (46-116); ASPARTATE AMINO TRANSFERASE 17 Units/L (15-37); BLOOD UREA NITROGEN 20 mg/dL (7-18); CALCIUM 7.9 mg/dL (8.5-10.1); CARBON DIOXIDE 30.7 mmol/L (21-32); CHLORIDE 108 mmol/L (98-107); COR CA(FOR HYPOALB) 8.9 mg/dL (8.5-10.1); COR NA(FOR HYPERGLY) 142 mmol/L (136-145); SODIUM 142 mmol/L (136-145); eGFR NON BLACK RACES 55 (>60)
[2023-02-28] MEDS: FLOMAX PO SCH (09:31)
[2023-02-28] MEDS: COLACE CAP 100 MG PO SCH (09:31)
[2023-02-28] MEDS: CLARITIN PO SCH (09:31)
[2023-02-28] MEDS: SINGULAIR TAB 10 MG PO SCH (09:31)
[2023-02-28] MEDS: MILK OF MAGNESIA PO SCH (09:32)
[2023-02-28] MEDS: SYNTHROID 50 mcg TAB PO SCH (09:32)
[2023-02-28] MEDS: MIRALAX POWDER (1 DOSE 17 G) PO SCH (09:32)
[2023-02-28] MEDS: PROTONIX INJ 40 MG VIAL IVP SCH (09:32)
[2023-02-28] MEDS: PEPCID TAB 40 MG PO SCH (09:32)
[2023-02-28] MEDS: TELMISARTAN 20 MG PO SCH (09:33)
[2023-02-28] MEDS ORDERED: VERSED IVP PRN (10:33)
[2023-02-28] MEDS ORDERED: MORPHINE SULFATE INJ 2 MG INJ IVP PRN (10:33)
== END 2023-02-28 11:30 | disposition home or self-care (01) ==
LOC: MED/SURG
PROVIDERS: ADMIT Internal Medicine; ATTEND Internal Medicine
DX: K21.9 Gastro-esophageal reflux disease without esophagitis; R10.84 Generalized abdominal pain; E11.65 Type 2 diabetes mellitus with hyperglycemia; I10 Essential (primary) hypertension; Z79.899 Other long term (current) drug therapy; K59.09 Other constipation; E86.0 Dehydration; R53.1 Weakness; E03.8 Other specified hypothyroidism